=== PATIENT | female | born 1995 | race Caucasian/White ===

== ENCOUNTER 2019-09-27 07:36 | Emergency (ER) | payer OTHER, MEDICAID, SELFPAY ==
[2019-09-27 07:37] VITALS: BP 112/76; PULSE 100; RESP 18; TEMP 36.8; O2SAT 100; BMI 22.8
--- NOTE | 2019-09-27 07:50 | DI.RAD.S_ITS ---
PROCEDURE: XR ANKLE RT MIN 3V INDICATIONS: ankle injury, rock fell on it, possible FB TECHNIQUE: 3 views of the ankle were acquired. COMPARISON: None. FINDINGS: Bones: No fractures or dislocations. Ankle mortise is normally aligned. No suspicious bony lesions. Soft tissues: No tibiotalar joint effusion. Achilles tendon appears normal. IMPRESSION: No fracture or foreign body found. Dictated by: Buddy Vasquez M.D. on 09/27/2019 at 9:01 Approved by: Buddy Vasquez M.D. on 09/27/2019 at 9:01
--- NOTE | 2019-09-27 07:53 | ED.LOWEXIN ---
HPI - Extremity Injury (Lower) General Chief Complaint: Extremity Injury, Lower Stated Complaint: cut ankle on rock yesterday Time Seen by Provider: 09/27/19 07:38 Source: patient Mode of arrival: Wheelchair Limitations: no limitations History of Present Illness HPI Narrative: 24-year-old female former smoker and occasional drinker without medical history presents with a chief complaint of increasing pain to her right ankle after injury yesterday. [place] when a rock fell on her posterior right ankle, she suffered a small laceration but did not think much of it. She denies strong likelihood of foreign body and states that over the course of today she has increasing pain with ambulation. She states it is not with weight-bearing as much as when she pushes off. The laceration is overlying her Achilles MD complaint: ankle injury Onset (ago): hour(s) Type of Injury: puncture wound and other Place: street/outdoors Severity: moderate Relieving factors: immobilization and rest Exacerbating factors: movement Context: direct blow Associated symptoms: swelling and ambulatory Other symptoms: none Related Data Previous Rx's Medication Instructions Recorded doxycycline hyclate 100 mg PO BID #20 tab 09/27/19 ketorolac 10 mg PO Q6H PRN #14 tab 09/27/19 Allergies Allergy/AdvReac Type Severity Reaction Status Date / Time No Known Drug Allergies Allergy Verified 09/27/19 07:43 Review of Systems Constitutional Constitutional: Denies chills, Denies fatigue, Denies fever(s), Denies frequent falls, Denies lethargy and Denies weakness Eyes Eyes: Denies change in vision, Denies eye discharge, Denies irritation and Denies loss of vision ENT Ears, Nose, Mouth, and Throat: Denies change in voice, Denies dizziness, Denies neck pain, Denies sore throat and Denies throat swelling Cardiovascular Cardiovascular: Denies chest pain, Denies irregular heart rhythm, Denies lightheadedness, Denies palpitations, Denies dyspnea, Denies dyspnea on exertion and Denies orthopnea Respiratory Respiratory: Denies cough, Denies dyspnea, Denies dyspnea on exertion and Denies wheezing Gastrointestinal Gastrointestinal: Denies abdominal pain, Denies change in bowel habits, Denies diarrhea, Denies nausea and Denies vomiting Genitourinary Genitourinary: Denies hematuria, Denies flank pain, Denies urinary incontinence and Denies urinary urgency Musculoskeletal Musculoskeletal: Denies back pain, Reports limited range of motion, Denies muscle weakness, Denies neck pain, Denies numbness and Denies tingling Integumentary/Breasts Skin/Breast: Denies pruritus, Denies erythema, Denies rash and Reports wounds Neurologic Neurologic: Denies behavioral changes, Denies confusion, Denies dizziness, Denies frequent falls, Denies loss of vision, Denies numbness, Denies tingling and Denies weakness Psychiatric Psychiatric: Denies anxiety, Denies behavioral changes, Denies confusion, Denies depression, Denies homicidal ideation and Denies suicidal ideation Endocrine Endocrine: Denies fatigue, Denies flushing and Denies palpitations Hematologic/Lymphatic Hematologic/Lymphatic: Denies easy bruising Allergic/Immunologic Allergic/Immunologic: Denies urticaria, Denies throat swelling and Denies wheezing Patient History Social History Smoking Status: Former smoker Smoking Status: Former smoker Alcohol type: beer and hard liquor Substance Use Type: does not use Exam Narrative Exam Narrative: GENERAL: [24] year old patient appears stated age. Well-nourished, well-developed patient, in mild distress. HEAD: Atraumatic. Normocephalic. EYES: Pupils equal round and reactive. Extraocular motions intact. No scleral icterus. No injection or drainage. ENT: Nose without bleeding, purulent drainage. Throat without erythema, tonsillar hypertrophy or exudate. Airway patent. NECK: Trachea midline. Non tender CARDIOVASCULAR: Regular rate and rhythm without murmurs, gallops, or rubs. RESPIRATORY: Clear to auscultation. Breath sounds equal bilaterally. No wheezes, rales, or rhonchi. GASTROINTESTINAL: Abdomen soft, non-tender, nondistended. EXTREMITIES: 1.5 cm laceration over posterior ankle, overlying achilles without active bleeding. Mild surrounding erythema, no drainage. Not deep enough to obviously involve tendon. Negative thompsons test (calf squeeze results in expected plantarflexion) BACK: Nontender without deformity or crepitance. No flank tenderness. NEURO: AOx3. SKIN: No rash or erythema of visible areas other than that which is mentioned above Initial Vital Signs Initial Vital Signs: Vital Signs Temperature 98.3 F 09/27/19 07:37 Pulse Rate 100 H 06/02/20 07:37 Respiratory Rate 18 09/27/19 07:37 Blood Pressure 112/76 09/27/19 07:37 Pulse Oximetry 100 09/27/19 07:37 Course Orders Ordered: ED Orders 09/27/19 07:50 XR ankle RT min 3V Stat Vital Signs Vital signs: Vital Signs - 8 hr 09/27/19 07:37 Temperature 98.3 F Pulse Rate 100 H Respiratory Rate 18 Blood Pressure 112/76 Pulse Oximetry 100 MDM - Extremity Injury (Lower) Imaging Data Extremity x-ray #1: Radiologist's Impression: Betty Escalante 24 F [address] [address] XRay Report Signed Patient: Betty Escalante GMR#: [id number] : 1995Acct:[id number] Age/Sex: 24 / FDate of Service: 09/27/19 Loc: ED Accession Number: [id number] Procedure: XR ankle RT min 3V Ordering Provider: Kamron Bruner D.O. PROCEDURE: XR ANKLE RT MIN 3V INDICATIONS: ankle injury, rock fell on it, possible FB TECHNIQUE: 3 views of the ankle were acquired. COMPARISON: None. FINDINGS: Bones: No fractures or dislocations. Ankle mortise is normally aligned. No suspicious bony lesions. Soft tissues: No tibiotalar joint effusion. Achilles tendon appears normal. IMPRESSION: No fracture or foreign body found. Dictated by: Buddy Vasquez M.D. on 09/27/2019 at 9:01 Approved by: Buddy Vasquez M.D. on 09/27/2019 at 9:01 Discharge Plan Departure Patient Disposition: Home Clinical Impression: Laceration of heel Qualifiers: Encounter type: initial encounter Laterality: right Qualified Code(s): S91.311A - Laceration without foreign body, right foot, initial encounter Cellulitis Qualifiers: Site of cellulitis: extremity Site of cellulitis of extremity: lower extremity Laterality: right Qualified Code(s): L03.115 - Cellulitis of right lower limb Discharge Date/Time: 09/27/19 08:50 Instructions: DI for Cellulitis -- Adult Activity Restrictions/Additional Instructions: *You have been diagnosed with [poorly healing laceration on right heel with signs of early infection] *What to do: *Take medications as directed *Follow up with your primary care provider in 2-3 days, call for an appointment. Let them know you were seen in the Emergency Department and that we ask that you be seen in follow up *Return to ER if you should have any new, worsening or concerning symptoms Prescriptions: New doxycycline hyclate 100 mg tablet 100 mg PO BID Qty: 20 RF: 0 ketorolac 10 mg tablet 10 mg PO Q6H PRN (Reason: pain) Qty: 14 RF: 0 Stand Alone Forms: Work Release Note
[2019-09-27 08:35] VITALS: BP 109/72; PULSE 86; RESP 16; O2SAT 98
--- NOTE | 2019-09-27 08:50 | PC.NURSE ---
steri strip applied with bandaid.
== END 2019-09-27 08:50 | disposition home or self-care (01) ==
PROVIDERS: Emergency Provider Emergency Medicine
DX: S91.311A Laceration without foreign body, right foot, initial encounter (principal); L03.115 Cellulitis of right lower limb; W19.XXXA Unspecified fall, initial encounter; Y93.01 Activity, walking, marching and hiking
CPT/HCPCS: 73610; 99283

== ENCOUNTER → 2020-10-09 13:02 | Outpatient (CLI) | payer OTHER, MEDICAID, SELFPAY ==
--- NOTE | 2020-10-09 13:06 | DI.RAD.S_ITS ---
PROCEDURE: XR HIP W PEL IF DONE LT 2V INDICATIONS: L hip pain TECHNIQUE: AP pelvis with lateral view(s) of the left hip(s). COMPARISON: None. FINDINGS: Bones: No fractures or dislocations. Pelvic ring appears intact. No suspicious bony lesions. Soft tissues: The visualized bowel gas pattern is normal. No suspicious soft tissue calcifications. IMPRESSION: Normal for age, source of current asymmetric left hip pain symptoms is not seen. Dictated by: Buddy Vasquez M.D. on 10/09/2020 at 15:46 Approved by: Buddy Vasquez M.D. on 10/09/2020 at 15:47
== END ==
PROVIDERS: PCP Registered Nurse Diabetes Educator; Referring Provider Registered Nurse Diabetes Educator; Visit Provider Registered Nurse Diabetes Educator
DX: M25.552 Pain in left hip (principal)
CPT/HCPCS: 73502

== ENCOUNTER → 2021-12-10 08:41 | Outpatient (CLI) | payer OTHER, MEDICAID, SELFPAY ==
--- NOTE | 2021-12-10 08:46 | DI.RAD.S_ITS ---
PROCEDURE: XR SACROILIAC JOINT MIN 3V INDICATIONS: eval L pelvic pain/LBP/SIJ TTP TECHNIQUE: 3 views of the sacroiliac joints were acquired. COMPARISON: None. FINDINGS: Bones: Mild left sacroiliac joint osteoarthritic changes are seen with slight joint space narrowing and subchondral sclerosis. No bony erosions or ankylosis. No suspicious bony lesions. No fractures. Soft tissues: Overlying bowel gas pattern is normal. No suspicious soft tissue densities. IMPRESSION: Asymmetric mild left sacroiliac joint osteoarthritis. No erosion or ankylosis. No fracture or dislocation. Dictated by: Jose Eduardo Moran M.D. on 12/10/2021 at 10:07 Approved by: Jose Eduardo Moran M.D. on 12/10/2021 at 10:08
--- NOTE | 2021-12-10 08:46 | DI.RAD.S_ITS ---
PROCEDURE: XR LUMBAR SPINE 2-3V INDICATIONS: eval L pelvic pain/LBP/SIJ TTP TECHNIQUE: 3 views of the lumbar spine were acquired. COMPARISON: None. FINDINGS: Bones: 5 [id number] vertebrae are present. There is normal bony alignment. No vertebral body compression fractures. No suspicious bony lesions. Soft tissues: Overlying bowel gas pattern is normal. No suspicious soft tissue calcifications. IMPRESSION: Unremarkable radiographic examination of lumbar spine. Dictated by: Jose Eduardo Moran M.D. on 12/10/2021 at 10:02 Approved by: Jose Eduardo Moran M.D. on 12/10/2021 at 10:07
[2021-12-10 09:29] LABS: Hematocrit 40.6 % (36-46); Hemoglobin 14.2 g/dL (12.0-16.0); Mean Corpuscular HGB Conc 34.9 % (30-36); Mean Corpuscular Hemoglobin 31.1 PG (26-34); Mean Corpuscular Volume 89.3 fL (80-100); Platelet Count 230 X10^3/uL (150-400); Red Blood Cell Count 4.55 X10^6/uL (4.0-5.2); Red Cell Distribution Width 13.5 % (11.6-14.8); White Blood Cell Count 9.7 X10^3/uL (4.5-11.0)
[2021-12-10 09:44] LABS: Alanine Aminotransferase 12 IU/L (<35); Albumin 4.6 g/dL (3.5-5.0); Albumin Globulin Ratio 1.4 (1.0-2.8); Alkaline Phosphatase 55 U/L (38-126); Aspartate Aminotransferase 20 IU/L (14-36); BUN Creatinine Ratio 21.7 (6-22); Bilirubin Total 0.3 mg/dL (0.2-1.3); Blood Urea Nitrogen 15 mg/dL (7-17); Calcium 9.4 mg/dL (8.4-10.2); Carbon Dioxide 24 mmol/L (22-32); Chloride 107 mmol/L (98-107); Cholesterol 178 mg/dL (140-199); Estimated Glomerular Filt Rate > 60 mL/min (>60); Globulin 3.2 g/dL (1.7-4.1); Glucose 98 mg/dL (70-100); HDL Cholesterol 52 mg/dL (40-60); HEMOLYSIS < 15 (0-50); LDL Cholesterol Calculated 104 mg/dL (<100); Potassium 4.1 mmol/L (3.4-5.1); Sodium 139 mmol/L (137-145); Total Protein 7.8 g/dL (6.3-8.2); Triglycerides 108 mg/dL (35-150)
== END ==
PROVIDERS: PCP Registered Nurse Diabetes Educator; Referring Provider Registered Nurse Diabetes Educator; Visit Provider Registered Nurse Diabetes Educator
DX: M53.3 Sacrococcygeal disorders, not elsewhere classified (principal); M46.1 Sacroiliitis, not elsewhere classified; M54.50 Low back pain, unspecified; R10.2 Pelvic and perineal pain; F33.1 Major depressive disorder, recurrent, moderate; F41.9 Anxiety disorder, unspecified; R79.89 Other specified abnormal findings of blood chemistry
CPT/HCPCS: 36415; 72100; 72202; 80053; 80061; 84443; 85027

== ENCOUNTER → 2021-12-16 09:42 | Outpatient (CLI) | payer OTHER, MEDICAID, SELFPAY ==
--- NOTE | 2021-12-16 09:43 | DI.US.S_ITS ---
PROCEDURE: US PELVIC COMPLETE INDICATIONS: eval L pelvic pain TECHNIQUE: Real-time scanning was performed of the pelvic organs, with image documentation. Additional endovaginal scanning was necessary due to incomplete visualization of the adnexal and endometrial structures by transabdominal scanning. COMPARISON: None. FINDINGS: Uterus: Uterus is anteverted and normal in size at 10.6 x 4.6 x 4.5 cm. The myometrium is homogeneous. The endometrium measures 12 mm combined thickness. Ovaries: The right ovary measures 1.7 x 1.6 x 1.4 cm, with a calculated ovarian volume of 2 cc. The left ovary measures 2.1 x 2.1 x 2 cm, with a calculated ovarian volume of 5 cc. The ovaries have a normal sonographic appearance. Less than 12 follicles can be seen in each ovary. Complex hypoechoic left ovarian cyst measuring 1.5 x 1.5 x 1.3 cm. Other: No pathologic free abdominal or pelvic fluid. IMPRESSION: 1. Small complex left ovarian cyst measuring 1.5 cm. This could represent a hemorrhagic cyst or corpus luteum. This could be further evaluated with follow-up pelvic ultrasound in 6-12 weeks. 2. Endometrium measures 12 mm. We strive to produce accurate, complete, and clear reports of imaging services. To assist us in improving patient care, this report was composed using standard report templates and voice recognition software. Therefore, it may contain abnormal punctuation, insertions and/or omissions. Occasional wrong-word or sound-alike substitutions may occur. Though we review the report and make efforts to correct it, we do recommend that the report be read carefully in proper context to recognize any text inaccuracies. Dictated by: Daquan Osorio M.D. on 12/16/2021 at 11:17 Approved by: Daquan Osorio M.D. on 12/16/2021 at 11:20
== END ==
PROVIDERS: PCP Registered Nurse Diabetes Educator; Referring Provider Registered Nurse Diabetes Educator; Visit Provider Registered Nurse Diabetes Educator
DX: N83.292 Other ovarian cyst, left side (principal); R10.2 Pelvic and perineal pain; M54.50 Low back pain, unspecified; M53.3 Sacrococcygeal disorders, not elsewhere classified
CPT/HCPCS: 76830; 76856

== ENCOUNTER → 2023-07-06 15:09 | Outpatient (CLI) | payer OTHER, MEDICAID, SELFPAY ==
--- NOTE | 2023-07-06 15:09 | DI.US.S_ITS ---
PROCEDURE: US PELVIC COMPLETE INDICATIONS: HISTORY OVARIAN CYSTS TECHNIQUE: Real-time scanning was performed of the pelvic organs, with image documentation. Additional endovaginal scanning was necessary due to incomplete visualization of the adnexal and endometrial structures by transabdominal scanning. COMPARISON: Merged With [facility], US, US PELVIC COMPLETE, 12/16/2021, 9:50. FINDINGS: Uterus: 8.3 x 3.5 x 5.2 cm. Endometrium measures 5-6 mm. No significant sonographic abnormality. Overall homogeneous echotexture. Ovaries: No discrete cystic lesion over 3 cm. No solid mass. The ovaries are overall nonenlarged, measuring under 10 cc. Color spectral flows are seen Other: No pathologic free fluid. IMPRESSION: Nonenlarged ovaries. No suspicious solid or cystic lesion. Endometrium is nonthickened. Dictated by: Scott Connor M.D. on 07/06/2023 at 16:41 Approved by: Scott Connor M.D. on 07/06/2023 at 16:43
== END ==
PROVIDERS: PCP Family Medicine; Referring Provider Family Medicine; Visit Provider Family Medicine
DX: N83.202 Unspecified ovarian cyst, left side (principal)
CPT/HCPCS: 76830; 76856; 93975

== ENCOUNTER → 2025-04-17 13:23 | Outpatient (CLI) | payer OTHER, SELFPAY ==
[2025-04-17 14:08] LABS: Add Manual Diff / Slide Review NO; Hematocrit 40.5 % (36-46); Hemoglobin 14.0 g/dL (12.0-16.0); Lymphocytes Absolute Auto 2000 /uL (1100-4500); Mean Corpuscular HGB Conc 34.6 % (30-36); Mean Corpuscular Hemoglobin 30.2 PG (26-34); Mean Corpuscular Volume 87.3 fL (80-100); Platelet Count 290 X10^3/uL (150-400)
[2025-04-17 14:44] LABS: Alanine Aminotransferase 13 IU/L (<35); Albumin 4.5 g/dL (3.5-5.0); Albumin Globulin Ratio 1.7 (1.0-2.8); Alkaline Phosphatase 54 U/L (38-126); Blood Urea Nitrogen 17 mg/dL (7-17); Calcium 10.4 mg/dL (8.4-10.2); Carbon Dioxide 29 mmol/L (22-32); Chloride 106 mmol/L (98-107); Estimated Glomerular Filt Rate > 60 mL/min (>60); Globulin 2.6 g/dL (1.7-4.1); Glucose 75 mg/dL (70-99); HEMOLYSIS < 15 (0-50); Potassium 4.4 mmol/L (3.4-5.1); Sodium 141 mmol/L (137-145); Total Protein 7.1 g/dL (6.3-8.2)
[2025-04-17 15:12] LABS: TSH w/ Reflex to FT4 1.40 uIU/mL (0.47-4.68)
== END ==
PROVIDERS: PCP Family Medicine; Referring Provider Family Medicine; Visit Provider Family Medicine
DX: R21 Rash and other nonspecific skin eruption (principal); L40.9 Psoriasis, unspecified; R59.9 Enlarged lymph nodes, unspecified; G89.29 Other chronic pain; M25.552 Pain in left hip; M54.50 Low back pain, unspecified; R53.82 Chronic fatigue, unspecified; M25.561 Pain in right knee; M25.50 Pain in unspecified joint; F41.9 Anxiety disorder, unspecified; F33.1 Major depressive disorder, recurrent, moderate; Z72.0 Tobacco use
CPT/HCPCS: 36415; 80053; 84443; 85025; 85651; 86038; 86430

== ENCOUNTER → 2025-04-18 12:39 | Outpatient (CLI) | payer OTHER, SELFPAY ==
[2025-04-18 14:20] LABS: Vitamin D 25 Hydroxy (D3) 27.4 ng/mL (30.0-100.0)
== END ==
PROVIDERS: PCP Family Medicine; Referring Provider Family Medicine; Visit Provider Family Medicine
DX: R53.82 Chronic fatigue, unspecified (principal); F33.1 Major depressive disorder, recurrent, moderate
CPT/HCPCS: 36415; 82306; 82310; 83970

== ENCOUNTER → 2025-04-26 13:29 | Outpatient (CLI) | payer OTHER, SELFPAY ==
--- NOTE | 2025-04-26 13:30 | DI.US.S_ITS ---
PROCEDURE: US EXTREMITY NONVASC LOWER RT INDICATIONS: posterior R knee pain TECHNIQUE: Real-time scanning was performed of the right posterior knee , with image documentation. COMPARISON: None. FINDINGS: 2.7 x 1.8 x 0.8 cm complex fluid collection in the posterior fossa. Relationship to muscles and tendons not clear on the examination. IMPRESSION: Indeterminate fluid collection or cystic and solid mass at the posterior fossa. Further evaluation with MRI knee with contrast recommended. Dictated by: Thomas Larson M.D. on 04/26/2025 at 17:03 Approved by: Thomas Larson M.D. on 04/26/2025 at 17:06
--- NOTE | 2025-04-26 13:30 | DI.US.S_ITS ---
PROCEDURE: US SOFT TISSUE HEAD AND NECK INDICATIONS: enlarged LN TECHNIQUE: Real-time scanning was performed of the right neck region of interest, with image documentation. COMPARISON: None. FINDINGS: 3 images of the right neck were submitted. No mass or abnormal lymph node visible. IMPRESSION: Negative examination. Dictated by: Thomas Larson M.D. on 04/26/2025 at 17:06 Approved by: Thomas Larson M.D. on 04/26/2025 at 17:07
== END ==
PROVIDERS: PCP Family Medicine; Referring Provider Family Medicine; Visit Provider Family Medicine
DX: M25.561 Pain in right knee (principal); R59.0 Localized enlarged lymph nodes; G89.29 Other chronic pain
CPT/HCPCS: 76536; 76882